=== PATIENT | male | born 1965 | race Caucasian/White ===

== ENCOUNTER 2021-09-14 10:42 | Outpatient (REF) | payer OTHER, SELFPAY ==
[2021-09-14 12:26] LABS: MANUAL DIFF FLAG NO
[2021-09-14 12:48] LABS: Basophils Percent Auto 0.1 % (0-2); Eosinophils Absolute Auto 0.1 X10*3/uL (0.0-0.4); Eosinophils Percent Auto 1.2 % (0-4); Hematocrit 42.3 % (42.0-52.0); Hemoglobin 14.7 g/dl (14.0-18.0); Imm Gran Abs Auto 0.03 X10*3/uL (0.00-0.03); Imm Gran Pct Auto 0.4 % (0.0-0.4); Lymphocytes Absolute Auto 2.2 X10*3/uL (1.2-4.9); Lymphocytes Percent Auto 27.8 % (20-40); Mean Corpuscular HGB Conc 34.8 g/dl (31.0-36.0); Mean Corpuscular Hemoglobin 31.3 pg (27.0-33.0); Mean Platelet Volume 8.8 fL (9.4-12.4); Monocytes Absolute Auto 0.6 X10*3/uL (0.1-1.2); Monocytes Percent Auto 7.2 % (2-11); Neutrophils Absolute Auto 5.1 x10*3/uL (2.0-8.3); Neutrophils Percent Auto 63.3 % (45-73); Platelet Count 268 X10*3/uL (160-400); Red Cell Distribution Width 12.4 % (11.0-16.0)
[2021-09-14 13:25] LABS: Alanine Aminotransferase 21 U/L (0-40); Alkaline Phosphatase 85 U/L (39-117); Anion Gap 16 (12-20); Aspartate Amino Transferase 25 U/L (5-37); Bilirubin Total 0.7 mg/dL (0.0-1.0); Blood Urea Nitrogen 12 mg/dL (9-16); Carbon Dioxide 26 mmol/L (22-29); Chloride 101 mmol/L (96-108); Estimated Glomerular Filt Rate > 60; Glucose Random 133 mg/dL (60-115); Potassium 4.1 mmol/L (3.3-5.1); Sodium 139 mmol/L (135-145); Total Protein 8.3 g/dL (6.5-8.0)
== END 2021-09-14 10:43 | disposition home or self-care (01) ==
LOC: HO.LAB 10:42
PROVIDERS: PCP Internal Medicine; Referring Provider Internal Medicine; Visit Provider Nurse Practitioner
DX: D12.6 Benign neoplasm of colon, unspecified (principal); K21.9 Gastro-esophageal reflux disease without esophagitis
CPT/HCPCS: 36415; 80053; 85025; 99212

== ENCOUNTER 2022-02-04 09:41 | Day surgery (SDC) | payer OTHER, SELFPAY ==
[2022-01-30 11:02] VITALS: BMI 37.9
[2022-01-30 11:25] VITALS: BMI 37.9
[2022-02-04 11:42] VITALS: BP 147/98; PULSE 108; RESP 16; TEMP 37.1; O2SAT 98
--- NOTE | 2022-02-04 11:59 | HO.ANESPROP2 ---
[facility] Active Problems Active Problems: All Active Problems (Updated 02/04/22 @ 11:42 by Jovita Arias RN) Morbid obesity (Acute) Thoracic spondylosis (Acute) HTN (hypertension), benign (Acute) Internal and external bleeding hemorrhoids (Acute) GERD (gastroesophageal reflux disease) (Acute) SHANTA (obstructive sleep apnea) (Acute) Diabetes (Acute) Major depressive disorder (Acute) Tubular adenoma of colon (Acute) Schizoaffective disorder (Acute) High cholesterol (Acute) Cervical radiculopathy (Acute) Past Medical History Medical History Depression Diabetes Elevated cholesterol GERD (gastroesophageal reflux disease) HTN (hypertension) Surgical History Surgical History H/O colonoscopy History of cholecystectomy History of orchiectomy History of Problems with Anesthesia: No Social History Social History Are you a primary resident care technician to a significant other at home: No Do you presently have visiting nurse or other home services: No Patient Tobacco Use Status: Never used Tobacco Use of substances other than those prescribed or required for medical reasons: No Have you been hit, kicked, punched, or otherwise hurt by someone within the past year? If so, by whom?: No Are you DNR?: No Advance Directives: No Advance Directives Information Provided: Yes Advance Directives on File: No Recently lost weight without trying: No Meds Allergies Allergy/AdvReac Type Severity Reaction Status Date / Time No Known Allergies Allergy Verified 02/04/22 11:40 Home Medications Medication Instructions Recorded Confirmed Last Taken Type amlodipine 10 mg tablet 10 mg PO DAILY 09/14/21 01/30/22 02/04/22 06:00 History aspirin 81 mg chewable tablet 1 tab PO DAILY 09/14/21 01/30/22 Unknown History bupropion HCl 300 mg 24 hr tablet, 300 mg PO BEDTIME 09/14/21 01/30/22 Unknown History extended release docusate sodium 100 mg capsule 100 mg PO BID 09/14/21 01/30/22 Unknown History ergocalciferol (vitamin D2) 1,250 1,250 mcg PO QWEEK 09/14/21 01/30/22 Unknown History mcg (50,000 unit) capsule fluoxetine 40 mg capsule 40 mg PO BEDTIME 09/14/21 01/30/22 Unknown History gabapentin 100 mg capsule 100 mg PO BID 09/14/21 01/30/22 Unknown History haloperidol 2 mg tablet 2 mg PO BID 09/14/21 01/30/22 Unknown History lisinopril 20 1 tab PO DAILY 09/14/21 01/30/22 Unknown History mg-hydrochlorothiazide 25 mg tablet metformin 850 mg tablet 850 mg PO BID 09/14/21 01/30/22 Unknown History omeprazole 20 mg capsule,delayed 20 mg PO DAILY 09/14/21 01/30/22 Unknown History release simvastatin 20 mg tablet 20 mg PO BEDTIME 09/14/21 01/30/22 Unknown History zaleplon 10 mg capsule 10 mg PO BEDTIME PRN 09/14/21 01/30/22 Unknown History Exam Exam Date and Time: February 04, 2022 1159 Height,Weight and Vital Signs: Height 5 ft 6 in Weight 106.594 kg Last Vital Signs Temp 98.8 F 02/04/22 11:42 Pulse 108 H 02/04/22 11:42 Resp 16 02/04/22 11:42 BP 147/98 H 02/04/22 11:42 Pulse Ox 98 02/04/22 11:42 Airway Mallampati Class: III TM Dist: >3cm Neck ROM: Full Loose/Missing/Broken Teeth: No Heart: RRR Lungs: CTA Assessment and Plan Assessment Anesthesia Assessment: Anesthesia Plan Discussed and Chart Reviewed Final Anesthetic Review History of Problems with Anesthesia: No NPO: Yes ASA Class: III Final Preanesthetic Review: Meds/Allgs Chart Reviewed, Consent Obtained/Reviewed and Anes Risks/Benef Reviewed Patient Risk: Intermediate Procedure Risk: Low Anesthetic Plan Anesthetic Plan: MAC: Disposition: Standard PACU
[2022-02-04] MEDS: Lactated Ringers 1,000 ML 100 ML IVCONT (12:05)
[2022-02-04 12:08] LABS: Glucose, Whole Blood 138 mg/dL (60-115)
--- NOTE | 2022-02-04 12:12 | MHC.SHP ---
Pre-Procedural Eval Section A Date of Service: 02/04/22 The patient is an INPATIENT: No The History & Physical has been completed within 30 days and I have reviewed it.: No Section B Chief Complaint: screening, Benign neoplasm of colon Details of Present Illness: Colon cancer screening, history of colon polyps Relevant Family History (Specify if Yes): No Relevant Social History: None Present Medications: see Short Stay Collaborative assessment Medical History: Significant History (Hypertension, diabetes, obstructive sleep apnea) History of Previous Operations: Relevant previous surgery/procedure and date(s) (H/O colonoscopy History of cholecystectomy History of orchiectomy) Allergies: Allergies Allergy/AdvReac Type Severity Reaction Status Date / Time No Known Allergies Allergy Verified 02/04/22 11:40 Review of Systems Sugical H&P ROS: Negative: Constitution, Cardiovascular, Respiratory and Gastrointestinal Exam Surgical H&P Exam: Normal: Heart, Normal: Lungs, Normal: Extremities and Normal: Abdomen Plan Diagnosis/Plan: Unchanged I have reviewed the history and physical and performed a pertinent physical examination on my patient. No changes have occurred unless specified.
--- NOTE | 2022-02-04 12:20 | P.OP_ITS ---
Operative Note Operative Note Date of Service: 02/04/22 Narrative: Pre-op diagnosis: colon cancer screening, hx of colon polyps Post-op diagnosis:?other (Colon polyp, diverticulosis, hemorrhoids) Procedure: COLONOSCOPY TILL CECUM WITH SNARE POLYPECTOMY AND SUBMUCOSAL INJECTION Consent: Indications for the procedure and potential complications of bleeding, perforation, reaction to medications and missed diagnosis were discussed with the patient and informed consent was obtained. Instrument: Olympus PCF H 190 L variable stiffness pediatric colonoscope Monitoring: Vital signs and clinical assessment, intermittent blood pressure monitoring, continuous EKG monitoring, Pulse oximetry and Carbon Dioxide monitoring were done throughout the procedure. Colon withdrawl time was 26 minutes. Procedure: The patient was placed in the left lateral decubitis position and pre-procedure medications were administered. After a digital rectal examination of the ano-rectum, the video colonoscope was inserted into the rectum and advanced through the colon to the cecum. The colonoscope was slowly withdrawn in a retrograde panoramic fashion and the colon mucosa was carefully examined including a retroflexed view of the rectum. Findings and interventions are described below. Procedure Difficulty: Without difficulty Findings: Terminal Ileum: Not evaluated Cecum:? Partially evaluated due to adherent stools Ascending Colon:? Partially evaluated due to adherent stools Transverse Colon:? A 2.5 to 3 cms sessile polyp in the proximal TC at 90 to 95 cms raised with 5 cc of normal saline (submucosal injection) removed with a stiff snare.? Polypectomy site was marked with Tara ink. Scattered diverticulosis Descending Colon:? Moderate diverticulosis Sigmoid Colon:? Moderate diverticulosis Rectum:? Normal Ano-rectum:? Moderate internal hemorrhoids Colon preparation:? Good? and fair in the right colon despite copious irrigation Impression and Post Procedure Diagnosis: Colonoscopy Findings: One large polyp removed Moderate diverticulosis seen in the transverse and left colon Moderate hemorrhoids on retroflexed exam. Plan: Await pathology results Patient has an appointment on 02/18/22 in the GI Clinic with? Andreina Goodwin NP. Repeat Colonoscopy interval based on path results - in 1-2 years if polyps are adenomatous and due to fair prep in the right colon. Above findings were reviewed with the patient and colon polyps and diverticulosis handouts were given in the discharge area Surgeon: Glenda Hester MD Anesthesia:?MAC (Dr Dallas) Was an On Site Wastewater Systems Technician used for this Procedure?:?Yes On Site Wastewater Systems Technician:?Jeannie Pate Estimated blood loss (mL):?0 Pathology:?other (A. transverse colon polyp at 95 cm) Condition:?stable Disposition:?PACU
[2022-02-04 13:07] VITALS: BP 104/76; PULSE 100; RESP 18; TEMP 36.4; O2SAT 98
[2022-02-04 13:22] VITALS: BP 134/94; PULSE 95; RESP 18; TEMP 36.4; O2SAT 97
== END 2022-02-04 14:25 | disposition home or self-care (01) ==
PROVIDERS: PCP Internal Medicine; Visit Provider Internal Medicine Gastroenterology
PROC: 0DJD8ZZ Inspection of Lower Intestinal Tract, Via Natural or Artificial Opening Endoscopic (ICD-10-PCS; CPT 45378; principal; 2022-02-04 11:40)
DX: Z12.11 Encounter for screening for malignant neoplasm of colon (principal); Z86.010 Personal history of colon polyps; K63.5 Polyp of colon; K57.30 Diverticulosis of large intestine without perforation or abscess without bleeding; K64.8 Other hemorrhoids; Z90.79 Acquired absence of other genital organ(s); Z90.49 Acquired absence of other specified parts of digestive tract; K21.9 Gastro-esophageal reflux disease without esophagitis; I10 Essential (primary) hypertension; G47.33 Obstructive sleep apnea (adult) (pediatric); E11.9 Type 2 diabetes mellitus without complications; Z79.84 Long term (current) use of oral hypoglycemic drugs; Z79.82 Long term (current) use of aspirin; Z79.899 Other long term (current) drug therapy
CPT/HCPCS: 45385; 45381; 82947; 88305

== ENCOUNTER → 2022-02-18 13:22 | Outpatient (BNVA) | payer OTHER, SELFPAY | PROVIDERS: PCP Internal Medicine; Referring Provider Internal Medicine; Visit Provider Nurse Practitioner | DX: K64.4 Residual hemorrhoidal skin tags (principal); K64.8 Other hemorrhoids; D12.6 Benign neoplasm of colon, unspecified | CPT/HCPCS: 99202 ==

== ENCOUNTER 2023-07-04 09:25 | Outpatient (REF) | payer OTHER, SELFPAY ==
[2023-07-04 12:31] LABS: Anion Gap 16 (12-20); Blood Urea Nitrogen 7 mg/dL (9-16); Calcium 9.8 mg/dL (8.4-10.2); Carbon Dioxide 29 mmol/L (22-29); Chloride 93 mmol/L (96-108); Estimated Glomerular Filt Rate > 60; Glucose Random 123 mg/dL (60-115); Potassium 4.5 mmol/L (3.3-5.1); Sodium 133 mmol/L (135-145)
== END 2023-07-04 09:26 | disposition home or self-care (01) ==
LOC: HO.HHCL 09:25
PROVIDERS: Visit Provider Internal Medicine
DX: I10 Essential (primary) hypertension (principal)
CPT/HCPCS: 36415; 80048

== ENCOUNTER 2023-12-05 12:26 | Outpatient (REF) | payer OTHER, SELFPAY ==
[2023-12-05 14:22] LABS: Cholesterol 175 mg/dL (<200); HDL Cholesterol 84 mg/dL (>40); LDL Cholesterol Calculated 64 mg/dL (<100); Triglycerides 135 mg/dL (<150); Vitamin D 25-OH Total 38.6 ng/mL (>30)
[2023-12-05 14:35] LABS: Reflex LDLD? No
[2023-12-07 22:08] LABS: TS Negative Control Passed; TS Panel A 0; TS Panel B 0; TS Positive Control Passed; TSpotTB Negative (Negative)
== END 2023-12-05 12:27 | disposition home or self-care (01) ==
LOC: HO.HHCL 12:26
PROVIDERS: Visit Provider Internal Medicine
DX: E11.9 Type 2 diabetes mellitus without complications (principal)
CPT/HCPCS: 36415; 80061; 82306; 86481

== ENCOUNTER 2024-01-22 12:20 | Outpatient (REF) | payer OTHER, SELFPAY ==
[2024-01-22 13:41] LABS: Alanine Aminotransferase 18 U/L (0-40); Albumin Level 4.6 g/dL (3.5-5.0); Alkaline Phosphatase 62 U/L (39-117); Anion Gap 14 (12-20); Aspartate Amino Transferase 22 U/L (5-37); Bilirubin Total 0.5 mg/dL (0.0-1.0); Blood Urea Nitrogen 12 mg/dL (9-16); Calcium 9.4 mg/dL (8.4-10.2); Carbon Dioxide 28 mmol/L (22-29); Chloride 96 mmol/L (96-108); Estimated Glomerular Filt Rate > 60; Glucose Random 131 mg/dL (60-115); Potassium 3.9 mmol/L (3.3-5.1); Sodium 134 mmol/L (135-145)
[2024-01-22 14:13] LABS: Vitamin B12 578 pg/mL (200-900)
== END 2024-01-22 12:21 | disposition home or self-care (01) ==
LOC: HO.HHCL 12:20
PROVIDERS: Visit Provider Internal Medicine
DX: I10 Essential (primary) hypertension (principal); E66.01 Morbid (severe) obesity due to excess calories; E11.9 Type 2 diabetes mellitus without complications
CPT/HCPCS: 36415; 80053; 82607; 82746

== ENCOUNTER 2024-05-26 10:21 | Outpatient (REF) | payer OTHER, SELFPAY ==
[2024-05-26 12:12] LABS: Alanine Aminotransferase 18 U/L (0-40); Albumin Level 4.4 g/dL (3.5-5.0); Alkaline Phosphatase 72 U/L (39-117); Aspartate Amino Transferase 21 U/L (5-37); Bilirubin Direct 0.2 mg/dL (0.0-0.5); Bilirubin Total 0.5 mg/dL (0.0-1.0); Total Protein 7.7 g/dL (6.5-8.0)
[2024-05-26 12:35] LABS: Vitamin B12 412 pg/mL (200-900)
[2024-05-26 12:39] LABS: Microalbum/Creatinine Ratio Ur 5.7 ug/mg cr (<30)
== END 2024-05-26 10:22 | disposition home or self-care (01) ==
LOC: HO.HHCL 10:21
PROVIDERS: Visit Provider Internal Medicine
DX: E11.9 Type 2 diabetes mellitus without complications (principal)
CPT/HCPCS: 36415; 80076; 82043; 82570; 82607

== ENCOUNTER 2025-05-30 12:17 | Outpatient (REF) | payer OTHER, SELFPAY ==
--- OUTSIDE RECORDS SUMMARY | 2025-05-30 13:24 | XMS_ITS | Encounter Summary ---
Author Organization [employer] Address [address] [place] [address] Care Team Providers Care Supervisor [employer] Name Role Phone Eda Chahal MD Primary Care Provider + Samuel Lopez PharmD Unavailable [phone] Encounter Details Date Type Department Care Team (Latest Contact Info) Description 02/12/2019 Abstract [facility] CONVERSIONS Dental, Provider, DDS Social History Tobacco Use Types Packs/Day Years Used Date Smoking Tobacco: Never Assessed Sex and Gender Information Value Date Recorded Sex Assigned at Male 08/12/2022 10:19 AM EDT Legal Sex Male 10:19 AM EDT Gender Identity Male 08/12/2022 10:19 AM EDT Sexual Orientation Choose not to disclose 2021 10:19 AM EDT documented as of this encounter Plan of Treatment Upcoming Encounters Date Type Department Care Team (Late st Contact Info) Description 07/06/2025 10:00 AM EDT Office Visit [facility] MEDICINE [address] [place] [address] Eda Chahal MD [address] [place] [address] documented as of this encounter Visit Diagnoses Not on filedocumented in this encounter Care Teams Supervisor [employer] Relationship Specialty Start Date End Date Eda Chahal MD [address] [place] [address] PCP - General Family Medicine 10/18/16 Samuel Lopez, PharmD [address] [place] [address] Pharmacist Internal Medicine 07/07/23 documented as of this encounter
[2025-05-30 13:57] LABS: Microalbum/Creatinine Ratio Ur 37.1 ug/mg cr (<30)
[2025-05-30 17:18] LABS: Alanine Aminotransferase 36 U/L (0-40); Albumin Level 4.9 g/dL (3.5-5.0); Alkaline Phosphatase 102 U/L (39-117); Anion Gap 21 (12-20); Aspartate Amino Transferase 46 U/L (5-37); Blood Urea Nitrogen 15 mg/dL (9-16); Calcium 9.5 mg/dL (8.4-10.2); Carbon Dioxide 24 mmol/L (22-29); Chloride 94 mmol/L (96-108); Cholesterol 193 mg/dL (<200); Estimated Glomerular Filt Rate > 60; HDL Cholesterol 88 mg/dL (>40); Potassium 4.7 mmol/L (3.3-5.1); Sodium 134 mmol/L (135-145); Total Protein 8.3 g/dL (6.5-8.0); Triglycerides 125 mg/dL (<150)
[2025-05-30 17:53] LABS: Reflex LDLD? No
== END 2025-05-30 12:18 | disposition home or self-care (01) ==
LOC: HO.HHCL 12:17
PROVIDERS: PCP Internal Medicine; Visit Provider Internal Medicine
DX: E11.9 Type 2 diabetes mellitus without complications (principal)
CPT/HCPCS: 36415; 80053; 80061; 82043; 82570

== ENCOUNTER 2025-07-27 09:11 | Outpatient (AMB) | payer OTHER, SELFPAY ==
[2025-07-27 09:20] VITALS: BP 118/62; PULSE 99; BMI 38.4
--- NOTE | 2025-07-27 09:20 | MHC.OFFVIS ---
Vital Signs 07/27/25 09:20 Height 5 ft 6 in Weight 238 lb 1.588 oz BMI 38.4 BP 118/62 Blood Pressure Location Rt brachial Position Sitting Pulse 99 Intake Visit Reasons: colo screening Tubular Adenoma, l/s 2021 Intake Note: New patient in office for colonoscopy screening. CC: Patient denies having any GI symptoms or concerns today. Head Cook Required: Yes Head Cook Language: Palestinian Accompanied by: Self / Same As Patient Allergies No Known Allergies Allergy (Verified 07/27/25 09:28) HPI HPI colo screening Tubular Adenoma, l/s 2021: Details: He denies any bowel or upper GI problems.? There are no prior problems with anesthesia or sedation.? He denies cardiac problems, he has a obstructive sleep apnea. No ID problems There is no known FHX crc or polyps. He had a polyp removed at the last scope but it was hyperplastic. He reads and writes better in Palestinian than Bengali so please male the instructions in Palestinian Laboratory Tests 05/30/25 12:26 Estimated GFR > 60 Total Bilirubin 0.8 AST 46 H ALT 36 Alkaline Phosphatase 102 TODAY'S VISIT Palestinian # Sara limon [facility] Medical History Elevated cholesterol Diabetes GERD (gastroesophageal reflux disease) Depression HTN (hypertension) Surgical History H/O colonoscopy History of orchiectomy History of cholecystectomy Family History Sister Lung cancer Social History Are you a primary transitional care liaison to a significant other at home: No Do you presently have visiting nurse or other home services: No Patient Tobacco Use Status: Never used Tobacco Review of Systems Const Denies fatigue, Denies fever(s), Denies night sweats, Denies poor appetite and Denies weight loss Eyes Details: glasses Reports requires corrective lenses ENT Reports Normal hearing present, Denies dental pain, Denies dysphagia, Denies hearing loss, Denies mouth pain, Denies odynophagia, Denies throat swelling, Denies tongue swelling and Reports other (Dentition adequate) Card Reports no additional complaints Resp Reports no additional complaints GI Details: Denies abdominal pain, Denies melena, Denies bloating, Denies hematochezia, Denies constipation, Denies GI cramping, Denies dysphagia, Denies excessive flatus, Denies early satiety, Reports heartburn, Denies diarrhea, Denies nausea, Denies odynophagia, Denies vomiting and Denies hematemesis Skin/Breast Denies pruritus, Denies lesions, Denies rash and Denies jaundice Neuro Reports Normal hearing present and Denies Abnormal speech present Endo Denies fatigue Aller/Immun Denies throat swelling and Denies tongue swelling Physical Exam Vital Signs: Last Vital Signs Pulse 99 07/27/25 09:20 BP 118/62 07/27/25 09:20 BMI result Body Mass Index 38.4 Const General: cooperative, no acute distress, well developed and well groomed Nutritional Appearance: well nourished and obese Orientation/consciousness: oriented to person, oriented to place and oriented to time Limitations: language barrier HEENT Head: Yes normocephalic and Yes atraumatic Eyes General: appearance normal, both eyes and all related structures Pupils: Equal, round and reactive pupils present Neck Neck: Yes normal visual inspection and Yes no lymphadenopathy Thyroid: Thyroid normal Resp Effort & Inspection: normal respiratory effort and able to speak in complete sentences Auscultation: clear to auscultation bilaterally Cardio Rate: regular rate Rhythm: regular rhythm Heart sounds: Normal, physiologic split S2 sound present Peripheral pulses: radial pulses present and posterior tibial pulses present GI Inspection: No distended, Yes Abdominal panniculus present and Yes obesity Palpation (GI): Soft to palpation, nontender, no guarding, not rigid and No hepatosplenomegaly present Percussion: Yes normal to percussion Auscultation: normal bowel sounds Rectal Exam - Male: Yes deferred Skin General skin exam: no rashes or lesions noted, turgor normal, skin not dry, no jaundice, No spider nevi and no striae Rashes: no rashes Nails: normal Neuro General: oriented to person, oriented to place and oriented to time Cranial nerves: Yes Equal, round and reactive pupils present and Yes Normal hearing present Speech: No Abnormal speech present Extrem General: Yes normal to inspection, No clubbing, No cyanosis and No edema Psych Appearance: grossly normal and well kempt Mental Status: mental status grossly normal Speech and movement: Normal speech and movement present Affect: normal affect Attitude: cooperative Thought process: Normal thought process present and not confabulating Thought content: Normal thought content present Insight: Good insight present (Psych) Judgement: Good judgement present (Psych) Assessment & Plan Assessment & Plan (1) Pre-op examination: Code(s): Z01.818 - Encounter for other preprocedural examination Category: Medical Plan Palestinian # Sara live He denies any bowel or upper GI problems.? There are no prior problems with anesthesia or sedation.? He denies cardiac problems, he has a obstructive sleep apnea. No ID problems There is no known FHX crc or polyps. He had a polyp removed at the last scope but it was hyperplastic. He reads and writes better in Palestinian than Bengali so please male the instructions in Palestinian Orders: Referrals GI Procedure Notification Z01.818 - Encounter for other preprocedural examination Medications: New bisacodyl (Dulcolax (bisacodyl)) 10 mg (2 x 5 mg) PO BEDTIME 8 tabs 0RF 4 days peg 3350-electrolytes [id number] -5.86 gram (Golytely) until fecal effluent is clear; do not exceed a total volume of 2,000 mL 240 mL PO Q10M 4,000 mL 0RF 1 day Z12.11 - Encounter for screening for malignant neoplasm of colon bisacodyl (Dulcolax (bisacodyl)) 10 mg (2 x 5 mg) PO BEDTIME 2 days 4 tabs 0RF Coding Level of Care Code New Pt Level 3 (90881) Diagnoses Pre-op examination Z01.818
== END 2025-07-27 09:48 | disposition home or self-care (01) ==
LOC: HO.HGI 09:11
PROVIDERS: PCP Internal Medicine; Visit Provider Nurse Practitioner
DX: Z01.818 Encounter for other preprocedural examination (principal); Z12.11 Encounter for screening for malignant neoplasm of colon; Z86.0101 Personal history of adenomatous and serrated colon polyps
CPT/HCPCS: 99203

== ENCOUNTER → 2025-07-27 09:11 | Outpatient (BNVA) | payer OTHER, SELFPAY | PROVIDERS: PCP Internal Medicine; Visit Provider Nurse Practitioner | DX: Z01.818 Encounter for other preprocedural examination (principal) | CPT/HCPCS: 99202 ==